=== PATIENT | female | born 1960 | race African-American/Black ===

== ENCOUNTER 2016-12-27 20:33 | Emergency (ER) | payer BC ==
[~2016-12-27] VITALS: Ht 177.8 cm; Wt 99.8 kg
[2016-12-27] MEDS ORDERED: GUMMI BEAR MUL1 EAC1 PO (20:59)
[2016-12-27] MEDS ORDERED: IBUPROFEN 800800 M1 PO (20:59)
[2016-12-27] MEDS ORDERED: ATORVASTATIN CA40 MG PO (21:00)
[2016-12-27] MEDS ORDERED: ALEVE220 M1 PO (21:00)
[2016-12-27] MEDS ORDERED: LEXAPRO20 MG PO (21:01)
[2016-12-27] MEDS ORDERED: LIPITOR 20 MG T20 M1 PO (21:01)
[2016-12-27] MEDS ORDERED: NATURE-THROID32.5 MG PO (21:03)
[2016-12-27] MEDS ORDERED: NORVASC5 MG PO (21:04)
[2016-12-27] MEDS ORDERED: ZOLPIDEM TART12.5 M1 PO (21:04)
[2016-12-27] MEDS ORDERED: NATURE-THROI48.75 MG PO (21:04)
[2016-12-27 21:41] LABS: CALCIUM 9.2 mg/dL (8.5-10.1); POTASSIUM 3.4 mmol/L (3.5-5.1)
[2016-12-27] MEDS ORDERED: LASIX 20 MG TAB20 MG PO (22:11)
[2016-12-27 22:50] VITALS: BP 134/81
== END 2016-12-27 22:50 | disposition home or self-care (01) ==
LOC: ER 20:33
PROVIDERS: Emergency Medicine
DX: R60.1 Generalized edema (principal); I10 Essential (primary) hypertension; Z88.6 Allergy status to analgesic agent; F17.210 Nicotine dependence, cigarettes, uncomplicated; F10.99 Alcohol use, unspecified with unspecified alcohol-induced disorder

== ENCOUNTER 2017-04-26 00:38 | Emergency (ER) | payer BC ==
[~2017-04-26] VITALS: Ht 177.8 cm; Wt 99.8 kg
[~2017-04-26 00:38] MED LIST: ALEVE220 M1 PO; ATORVASTATIN CA40 MG PO; GUMMI BEAR MUL1 EAC1 PO; IBUPROFEN 800800 M1 PO; LASIX 20 MG TAB20 MG PO; LEXAPRO20 MG PO; LIPITOR 20 MG T20 M1 PO; NATURE-THROI48.75 MG PO; NATURE-THROID32.5 MG PO; NORVASC5 MG PO; ZOLPIDEM TART12.5 M1 PO
[2017-04-26] MEDS ORDERED: ACETAMINOPHEN-1 EAC1 PO (02:42)
[2017-04-26 03:12] VITALS: BP 148/82
== END 2017-04-26 03:12 | disposition home or self-care (01) ==
LOC: ER
DX: S02.2XXA Fracture of nasal bones, initial encounter for closed fracture (principal); S61.411A Laceration without foreign body of right hand, initial encounter; S43.402A Unspecified sprain of left shoulder joint, initial encounter; I10 Essential (primary) hypertension; F17.210 Nicotine dependence, cigarettes, uncomplicated; F15.10 Other stimulant abuse, uncomplicated; Z88.5 Allergy status to narcotic agent; Y08.89XA Assault by other specified means, initial encounter; Y93.89 Activity, other specified; Y92.89 Other specified places as the place of occurrence of the external cause; Y99.8 Other external cause status